=== PATIENT | male | born 1960 | race African-American/Black ===

== ENCOUNTER 2017-04-21 23:10 | Inpatient (IN) | payer OTHER ==
--- NOTE | 2017-04-22 01:06 | HP ---
CIWA Score - CIWA Score Nausea/Vomitin Muscle Tremors: 4-Moderate,w/Arms Extend Anxiety: 4-Mod. Anxious/Guarded Agitation: 1-Slight > Activity Paroxysmal Sweats: 2 Orientation: 0-Oriented Tacttile Disturbances: 0-None Auditory Disturbances: 0-None Visual Disturbances: 0-None Headache: 3-Moderate CIWA-Ar Total Score: 16 Admission ROS BHS - HPI Chief Complaint: Alcohol withdrawal symptoms Allergies/Adverse Reactions: Allergies Allergy/AdvReac Type Severity Reaction Status Date / Time No Known Allergies Allergy Verified 04/22/17 02:03 History of Present Illness: 56 years old male with a long history of alcohol dependence is admitted to detox. Patient has been in previous detox and reports 14 months of sobriety. He has past medical history of HTN, Hypercholesterolemia, CHF, GOUT, Obstructive sleep apnea, Pneumonia and depression. He reports suicide attempt in 2008 and denies suicidal ideation at this time. Exam Limitations: Other (Obesity) - Ebola screening Have you traveled outside of the country in the last 21 days: No Have you had contact with anyone from an Ebola affected area: No Have you been sick,other than usual withdrawal symptoms: No Do you have a fever: No - Review of Systems Constitutional: Chills, Malaise, Night Sweats, Changes in sleep EENT: reports: Nose Congestion, Sinus Pressure Respiratory: reports: No Symptoms reported Cardiac: reports: No Symptoms Reported GI: reports: Diarrhea, Poor Fluid Intake, Abdominal cramping : reports: No Symptoms Reported Musculoskeletal: reports: Muscle Pain, Muscle Weakness Integumentary: reports: Flushing Neuro: reports: Headache, Tingling, Tremors Endocrine: reports: No Symptoms Reported Hematology: reports: No Symptoms Reported Psychiatric: reports: Orientated x3, Agitated, Anxious Other Systems: Reviewed and Negative Patient History - Patient Medical History Hx Anemia: No Hx Asthma: No Hx Chronic Obstructive Pulmonary Disease (COPD): No Hx Cancer: No Hx Cardiac Disorders: No Hx Congestive Heart Failure: Yes Hx Hypertension: Yes (B/P=174/98) Hx Hypercholesterolemia: Yes Hx Pacemaker: No HX Cerebrovascular Accident: No Hx Seizures: No Hx Diabetes: No Hx Gastrointestinal Disorders: No Hx Liver Disease: No Hx Genitourinary Disorders: No Hx Sexually Transmitted Disorders: No Hx Renal Disease (ESRD): No Hx Thyroid Disease: No Hx Human Immunodeficiency Virus (HIV): No (neg 3m ) Hx Hepatitis C: No Hx Depression: Yes Hx Suicide Attempt: Yes (4 yrs ago ) Hx Bipolar Disorder: Yes Hx Schizophrenia: No - Patient Surgical History Past Surgical History: Yes Hx Neurologic Surgery: No Hx Cataract Extraction: No Hx Cardiac Surgery: No Hx Lung Surgery: No Hx Abdominal Surgery: No Hx Appendectomy: Yes (1984 ) Hx Cholecystectomy: No Hx Genitourinary Surgery: No Hx Orthopedic Surgery: No Anesthesia Reaction: No - PPD History Previous Implant?: Yes Documented Results: Negative w/o proof Implanted On Prior [facility] Admission?: Yes Date: 01/27/15 PPD to be Administered?: Yes - Reproductive History Patient is a Female of Child Bearing Age (11 -55 yrs old): No (MALE) - Smoking Cessation Smoking history: Current every day smoker Have you smoked in the past 12 months: Yes Aproximately how many cigarettes per day: 10 Cigars Per Day: 0 Hx Chewing Tobacco Use: No Initiated information on smoking cessation: Yes 'Breaking Loose' booklet given: 04/22/17 - Substance & Tx. History Hx Alcohol Use: Yes Hx Substance Use: Yes Substance Use Type: Alcohol, Cocaine Hx Substance Use Treatment: Yes ([facility]) - Substances Abused Alcohol Route: Injection Frequency: Daily Amount used: BEER- 120 oz, LIQUOR- 1 Age of first use: 10 Date of Last Use: 04/21/17 Cocaine Route: Smoking Frequency: Daily Amount used: $100 Age of first use: 22 Date of Last Use: 04/20/17 Family Disease History - Family Disease History Family Disease History: Diabetes: Father (), Heart Disease: Father, CA: Mother (Lung Ca- ) Admission Physical Exam [facility] Physical General Appearance: Yes: Moderate Distress, Tremorous, Irritable, Anxious HEENTM: Yes: GRACE, Nasal Congestion, Other (stye eight eye) Respiratory: Yes: Lungs Clear, No Respiratory Distress Neck: Yes: Supple Breast: Yes: Breast Exam Deferred Cardiology: Yes: Regular Rhythm, Regular Rate, S1, S2 Abdominal: Yes: Protuberent Genitourinary: Yes: Within Normal Limits Back: Yes: Normal Inspection Musculoskeletal: Yes: Back pain, Muscle Pain, Muscle weakness Extremities: Yes: Tremors Neurological: Yes: Alert, Normal Mood/Affect, Normal Response Integumentary: Yes: Dry Lymphatic: Yes: Within Normal Limits - Diagnostic (1) Alcohol dependence with uncomplicated withdrawal Current Visit: Yes Status: Chronic (2) CHF (congestive heart failure) Current Visit: Yes Status: Chronic Qualifiers: Congestive heart failure type: unspecified congestive heart failure type Congestive heart failure chronicity: unspecified congestive heart failure chronicity (3) Cocaine dependence Current Visit: Yes Status: Chronic Qualifiers: Substance use status: in withdrawal Qualified Code(s): F14.23 - Cocaine dependence with withdrawal (4) Nicotine dependence Current Visit: Yes Status: Chronic Qualifiers: Nicotine product type: cigarettes Substance use status: uncomplicated Qualified Code(s): F17.210 - Nicotine dependence, cigarettes, uncomplicated (5) Obstructive sleep apnea Current Visit: Yes Status: Chronic (6) Pneumonia Current Visit: Yes Status: Chronic Qualifiers: Pneumonia type: due to unspecified organism Laterality: left Lung location: lower lobe of lung Qualified Code(s): J18.1 - Lobar pneumonia, unspecified organism (7) Morbid obesity Current Visit: Yes Status: Chronic (8) Pituitary adenoma Current Visit: Yes Status: Chronic (9) Stasis dermatitis of both legs Current Visit: Yes Status: Chronic Cleared for Admission S - Detox or Rehab [facility] Level of Care: Medically Managed Detox Regimen/Protocol: Librium [facility] Breath Alcohol Content Breath Alcohol Content: 0.080 Vital Signs - Vital Signs Vital Signs Refused: Yes Temperature: 98.9 F Temperature Source: Oral Pulse Rate: 68 Respiratory Rate: 18 Blood Pressure: 145/70 BP Location: Left Arm Blood Pressure Position: Sitting - Height Height: 5 ft 8 in - Weight Weight: 350 lb Weight Measurement Method: Standing Scale Body Mass Index (BMI): 53.1 - Bowel Function Bowel Movement: Yes Urine Drug Screen - Test Device Lot Number: [id number] Expiration Date: 12/14/18 - Control Is Test Valid: Yes - Results Drug Screen Negative: No Urine Drug Screen Results: GABRIELLE-Cocaine
[2017-04-22] MEDS ORDERED: guaiFENesin/D-METHORPHAN HB 10 ML UNIT-DOSE CUPS PO PRN (01:31)
[2017-04-22] MEDS ORDERED: P-EPHED 60MG/TRIPROLIDI 2.5MG TABLET PO PRN (01:31)
[2017-04-22] MEDS ORDERED: NICOTINE POLACRILEX 2 MG GUM BC PRN (01:31)
[2017-04-22] MEDS ORDERED: ACETAMINOPHEN 325 MG TABLET (FP) PO PRN (01:31)
[2017-04-22] MEDS ORDERED: chlordiazePOXIDE HCL 25 MG CAPSULE PO PRN (01:31)
[2017-04-22] MEDS ORDERED: chlordiazePOXIDE HCL 25 MG CAPSULE PO ONE (01:31)
[2017-04-22] MEDS ORDERED: MAGNESIUM CITRATE 300 ML BOTTLE PO PRN (01:31)
[2017-04-22] MEDS ORDERED: MENTHOL/PHENOL 1 EACH UD MM PRN (01:31)
[2017-04-22] MEDS ORDERED: MAGNESIUM HYDROX 2400MG/30ML ORAL SUSPENSION 30 ML CUP PO PRN (01:31)
[2017-04-22] MEDS ORDERED: MAG HYDROX/AL HYDROX/SIMETH 30 ML UNIT-DOSE CUP PO PRN (01:31)
[2017-04-22] MEDS ORDERED: LOPERAMIDE HCL 2 MG CAPSULE PO PRN (01:31)
[2017-04-22] MEDS ORDERED: ALBUTEROL SO4 2.5/IPRATROPIUM 0.5 INH SOL 3 ML VIAL.NEB. NEB PRN (01:34)
[2017-04-22 01:47] VITALS: BMI 53.1
[2017-04-22] MEDS: chlordiazePOXIDE HCL 25 MG CAPSULE PO SCH ×4 (05:20→22:26)
--- NOTE | 2017-04-22 09:07 | EKG ---
Test Reason : Blood Pressure : / mmHG Vent. Rate : 075 BPM Atrial Rate : 075 BPM P-R Int : 160 ms QRS Dur : 096 ms QT Int : 434 ms P-R-T Axes : 096 -02 038 degrees QTc Int : 484 ms NORMAL SINUS RHYTHM MINIMAL VOLTAGE CRITERIA FOR LVH, MAY BE NORMAL VARIANT PROLONGED QT ABNORMAL ECG WHEN COMPARED WITH ECG OF 27-JAN-2015 11:04, NO SIGNIFICANT CHANGE WAS FOUND Confirmed by Steve Lopez ([id number]) on 04/22/2017 9:07:10 AM Referred By: Confirmed By:Steve Lopez
[2017-04-22] MEDS: IBUPROFEN 400 MG TABLET (FP) PO PRN (09:41)
[2017-04-22] MEDS: amLODIPine BESYLATE 10 MG TABLET (FP) PO SCH (09:42)
[2017-04-22] MEDS: LISINOPRIL 10 MG TABLET (FP) PO SCH (09:42)
[2017-04-22] MEDS: PRENATAL VITAMINS W/ FOLIC ACID TABLET (FP) PO SCH (09:42)
[2017-04-22] MEDS: FUROSEMIDE 40 MG TABLET (FP) PO SCH (09:42)
[2017-04-22] MEDS: COLCHICINE 0.6 MG TABLET (FP) PO SCH ×2 (09:43→22:28)
[2017-04-22 10:16] LABS: HEMOGLOBIN 12.9 GM/dL (11.7-16.9); MCH 30.2 pg (25.7-33.7); MCHC 31.6 g/dl (32.0-35.9); MEAN CELL VOLUME 95.6 fl (80-96); MEAN PLT VOLUME 9.1 fl (7.5-11.1); PLATELET COUNT 273 K/MM3 (134-434); RBC 4.29 M/mm3 (4.00-5.60); WHITE BLOOD COUNT 8.1 K/mm3 (4.0-10.0)
[2017-04-22] MEDS: NICOTINE 14 MG/24 HOURS TOPICAL PATCH TD SCH (10:17)
[2017-04-22 10:27] LABS: CHLORIDE 109 mmol/L (98-107); POTASSIUM 3.5 mmol/L (3.5-5.1); SODIUM 147 mmol/L (136-145)
--- NOTE | 2017-04-22 10:29 | PN ---
[facility] Progress Note Note: PT WAS ADMITTED EARLY THIS MORNING. PT SEEN WHILE IN BED. ALERT O X 3. C/O BACK PAIN. Laboratory Last Values WBC 8.1 K/mm3 (4.0-10.0) 04/22/17 07:00 RBC 4.29 M/mm3 (4.00-5.60) 04/22/17 07:00 Hgb 12.9 GM/dL (11.7-16.9) 04/22/17 07:00 Hct 41.0 % (35.4-49) 04/22/17 07:00 MCV 95.6 fl (80-96) 04/22/17 07:00 MCH 30.2 pg (25.7-33.7) 04/22/17 07:00 MCHC 31.6 g/dl (32.0-35.9) L 04/22/17 07:00 RDW 15.0 % (11.9-15.9) 04/22/17 07:00 Plt Count 273 K/MM3 (134-434) 04/22/17 07:00 MPV 9.1 fl (7.5-11.1) 04/22/17 07:00 OTHER LABS PENDING. CONTINUE DETOX. MOTRIN PRN
[2017-04-22 10:36] LABS: ALK PHOS 94 U/L (45-117); ANION GAP 7 (8-16); BILIRUBIN,TOTAL 0.1 mg/dL (0.2-1.0); BLOOD UREA NITROGEN 24 mg/dL (7-18); CALCIUM 8.3 mg/dL (8.5-10.1); CO2 31 mmol/L (21-32); CREATININE 0.9 mg/dL (0.7-1.3); GLUCOSE,RANDOM 102 mg/dL (74-106); SGOT/AST 13 U/L (15-37); SGPT/ALT 20 U/L (12-78); TOT PROT 6.5 g/dl (6.4-8.2)
[2017-04-22] MEDS: ALLOPURINOL 100 MG TABLET (FP) PO SCH (10:55)
[2017-04-22] MEDS: ARFORMOTEROL TARTRATE 15 MCG/2 ML VIAL NEB SCH ×2 (10:55→22:22)
--- NOTE | 2017-04-22 14:01 | CONSULT ---
[facility] Psychiatric Consult - Data Date of interview: 04/22/17 Admission source: [facility] Identifying data: Readmission to [facility] for this 56 y/o Aa male seeking detox treatment on for alcohol and cocaine (crack) dependence.Patient is single without children,domiciled,unemployed,disabled (morbid obesity) and supported on SSI benefits. Substance Abuse History: Confirmed by mary in this interview.Details in current [facility] report .Smoking history: Current every day smoker. Have you smoked in the past 12 months: Yes. Aproximately how many cigarettes per day: 10. Cigars Per Day: 0. Hx Chewing Tobacco Use: No. Initiated information on smoking cessation: Yes. 'Breaking Loose' booklet given: 04/22/17. - Substance & Tx. History. Hx Alcohol Use: Yes. Hx Substance Use: Yes. Substance Use Type : Alcohol, Cocaine. Hx Substance Use Treatment: Yes ([facility]). - Substances Abused. Alcohol. Route: Injection. Frequency: Daily. Amount used: BEER- 120 oz, LIQUOR- 1. Age of first use: 10. Date of Last Use: 04/21/17. Cocaine. Route: Smoking. Frequency: Daily. Amount used: $100. Age of first use: 22. Date of Last Use: 04/20/17 Medical History: Morbid obesity,sleep apnea,hypertension,chronic back pain, hypercholesterolemia,pituitary adenoma,stasis dermatitis (lower extremities), congestive heart failure,gout and a history of appendectomy (1984). Psychiatric History: Patient reports a history of two psychiatric hospitalizations ([facility] + [facility] ) that occurred approximately 18-20 years ago.Diagnosed with Bipolar Disorder.Mr Graham indicates that he has no recollection of medications prescribed at the time.Has been off psychotropic medications for several years.He has kept seeing a therapist " for a while " at the [facility] in [facility].Stopped in 2017.Patient denies history of suicide attempts. Physical/Sexual Abuse/Trauma History: Patient denies. Additional Comment: Urine Drug Screen Results: GABRIELLE-Cocaine.Noted. Mental Status Exam - Mental Status Exam Alert and Oriented to: Time, Place, Person Cognitive Function: Good Patient Appearance: Well Groomed (morbidly obese) Mood: Nervous, Withdrawn Affect: Mood Congruent Patient Behavior: Fatigued, Appropriate, Cooperative Speech Pattern: Clear Voice Loudness: Normal Thought Process: Intact, Goal Oriented Thought Disorder: Not Present Hallucinations: Denies Suicidal Ideation: Denies Homicidal Ideation: Denies Insight/Judgement: Poor Sleep: Well Appetite: Good Muscle strength/Tone: Normal Gait/Station: Other (slow due to excess of weight) Psychiatric Findings - Problem List ([place] 1, 2,3) (1) Alcohol dependence with uncomplicated withdrawal Current Visit: Yes Status: Chronic (2) Cocaine dependence Current Visit: Yes Status: Chronic Qualifiers: Substance use status: in withdrawal Qualified Code(s): F14.23 - Cocaine dependence with withdrawal (3) Nicotine dependence Current Visit: Yes Status: Chronic Qualifiers: Nicotine product type: cigarettes Substance use status: uncomplicated Qualified Code(s): F17.210 - Nicotine dependence, cigarettes, uncomplicated - Initial Treatment Plan Initial Treatment Plan: Psychoeducation and support.Detoxification in progress.Patient is encouraged to attend daily therapy groups and community meetings.Falls precautions.Observation.
[2017-04-22 18:14] LABS: URINE APPEARANCE CLEAR; URINE BILIRUBIN NEGATIVE (NEGATIVE); URINE BLOOD NEGATIVE (NEGATIVE); URINE COLOR COLORLESS; URINE GLUCOSE (UA) NEGATIVE (NEGATIVE); URINE KETONE NEGATIVE (NEGATIVE); URINE LEUK ESTERASE NEGATIVE (NEGATIVE); URINE NITRITE NEGATIVE (NEGATIVE); URINE PROTEIN NEGATIVE (NEGATIVE); URINE UROBILINOGEN NEGATIVE mg/dL (0.2-1.0)
[2017-04-22] MEDS: ATORVASTATIN CA 20 MG TABLET (FP) PO SCH (22:26)
[2017-04-22] MEDS: THIAMINE HCL 100 MG TABLET (FP) PO SCH (22:26)
[2017-04-23] MEDS: chlordiazePOXIDE HCL 25 MG CAPSULE PO SCH ×4 (05:38→22:44)
[2017-04-23] MEDS: IBUPROFEN 400 MG TABLET (FP) PO PRN (05:41)
[2017-04-23] MEDS: LISINOPRIL 10 MG TABLET (FP) PO SCH (10:18)
[2017-04-23] MEDS: COLCHICINE 0.6 MG TABLET (FP) PO SCH ×2 (10:18→22:43)
[2017-04-23] MEDS: NICOTINE 14 MG/24 HOURS TOPICAL PATCH TD SCH (10:18)
[2017-04-23] MEDS: FUROSEMIDE 40 MG TABLET (FP) PO SCH (10:18)
[2017-04-23] MEDS: amLODIPine BESYLATE 10 MG TABLET (FP) PO SCH (10:18)
[2017-04-23] MEDS: PRENATAL VITAMINS W/ FOLIC ACID TABLET (FP) PO SCH (10:18)
[2017-04-23] MEDS: ARFORMOTEROL TARTRATE 15 MCG/2 ML VIAL NEB SCH ×2 (10:18→22:43)
[2017-04-23] MEDS: ALLOPURINOL 100 MG TABLET (FP) PO SCH (10:20)
--- NOTE | 2017-04-23 11:00 | PN ---
[facility] CIWA - CIWA Score Nausea/Vomitin-No Nausea/No Vomiting Muscle Tremors: 4-Moderate,w/Arms Extend Anxiety: 4-Mod. Anxious/Guarded Agitation: 4-Moderately Restless Paroxysmal Sweats: 1-Minimal Palms Moist Orientation: 0-Oriented Tacttile Disturbances: 3-Moderate Itch/Numb/Burn Auditory Disturbances: 0-None Visual Disturbances: 0-None Headache: 0-None Present CIWA-Ar Total Score: 16 S Progress Note (SOAP) Subjective: ANXIETY, SWEATS, CHRONIC LOWER BACK PAIN. SAW PT WHILE LAYING IN BED. Objective: 04/23/17 10:59 Vital Signs Temperature 97.2 F L 04/23/17 09:04 Pulse Rate 68 04/23/17 09:04 Respiratory Rate 18 04/23/17 09:04 Blood Pressure 114/69 04/23/17 09:04 O2 Sat by Pulse Oximetry (%) Laboratory Last Values WBC 8.1 K/mm3 (4.0-10.0) 04/22/17 07:00 RBC 4.29 M/mm3 (4.00-5.60) 04/22/17 07:00 Hgb 12.9 GM/dL (11.7-16.9) 04/22/17 07:00 Hct 41.0 % (35.4-49) 04/22/17 07:00 MCV 95.6 fl (80-96) 04/22/17 07:00 MCH 30.2 pg (25.7-33.7) 04/22/17 07:00 MCHC 31.6 g/dl (32.0-35.9) L 04/22/17 07:00 RDW 15.0 % (11.9-15.9) 04/22/17 07:00 Plt Count 273 K/MM3 (134-434) 04/22/17 07:00 MPV 9.1 fl (7.5-11.1) 04/22/17 07:00 Sodium 147 mmol/L (136-145) H 04/22/17 07:00 Potassium 3.5 mmol/L (3.5-5.1) 04/22/17 07:00 Chloride 109 mmol/L (98-107) H 04/22/17 07:00 Carbon Dioxide 31 mmol/L (21-32) D 04/22/17 07:00 Anion Gap 7 (8-16) L 04/22/17 07:00 BUN 24 mg/dL (7-18) H 04/22/17 07:00 Creatinine 0.9 mg/dL (0.7-1.3) 04/22/17 07:00 Creat Clearance w eGFR > 60 (>60) 04/22/17 07:00 Random Glucose 102 mg/dL (74-106) 04/22/17 07:00 Calcium 8.3 mg/dL (8.5-10.1) L 04/22/17 07:00 Total Bilirubin 0.1 mg/dL (0.2-1.0) L D 04/22/17 07:00 AST 13 U/L (15-37) L D 04/22/17 07:00 ALT 20 U/L (12-78) D 04/22/17 07:00 Alkaline Phosphatase 94 U/L (45-117) 04/22/17 07:00 Total Protein 6.5 g/dl (6.4-8.2) 04/22/17 07:00 Albumin 3.0 g/dl (3.4-5.0) L 04/22/17 07:00 Urine Color Colorless 04/22/17 16:00 Urine Appearance Clear 04/22/17 16:00 Urine pH 5.0 (5.0-8.0) 04/22/17 16:00 Ur Specific [place] 1.006 (1.001-1.035) 04/22/17 16:00 Urine Protein Negative (NEGATIVE) 04/22/17 16:00 Urine Glucose (UA) Negative (NEGATIVE) 04/22/17 16:00 Urine Ketones Negative (NEGATIVE) 04/22/17 16:00 Urine Blood Negative (NEGATIVE) 04/22/17 16:00 Urine Nitrite Negative (NEGATIVE) 04/22/17 16:00 Urine Bilirubin Negative (NEGATIVE) 04/22/17 16:00 Urine Urobilinogen Negative mg/dL (0.2-1.0) 04/22/17 16:00 Ur Leukocyte Esterase Negative (NEGATIVE) 04/22/17 16:00 RPR Titer Nonreactive (NONREACTIVE) 04/22/17 07:00 Assessment: 04/23/17 10:59 WITHDRAWAL SX Plan: CONTINUE DETOX MOTRIN PRN DIRECTED FOR PAIN FALL PRECAUTIONS DISCUSSED.
[2017-04-23] MEDS: ATORVASTATIN CA 20 MG TABLET (FP) PO SCH (22:44)
[2017-04-23] MEDS: THIAMINE HCL 100 MG TABLET (FP) PO SCH (22:44)
[2017-04-24] MEDS: IBUPROFEN 400 MG TABLET (FP) PO PRN (01:33)
[2017-04-24] MEDS: chlordiazePOXIDE 5 MG CAPSULE PO SCH ×4 (06:00→23:03)
[2017-04-24] MEDS: FUROSEMIDE 40 MG TABLET (FP) PO SCH (10:08)
[2017-04-24] MEDS: LISINOPRIL 10 MG TABLET (FP) PO SCH (10:08)
[2017-04-24] MEDS: amLODIPine BESYLATE 10 MG TABLET (FP) PO SCH (10:08)
[2017-04-24] MEDS: PRENATAL VITAMINS W/ FOLIC ACID TABLET (FP) PO SCH (10:08)
[2017-04-24] MEDS: NICOTINE 14 MG/24 HOURS TOPICAL PATCH TD SCH (10:08)
[2017-04-24] MEDS: ALLOPURINOL 100 MG TABLET (FP) PO SCH (10:09)
[2017-04-24] MEDS: COLCHICINE 0.6 MG TABLET (FP) PO SCH ×3 (10:09→23:07)
--- NOTE | 2017-04-24 11:07 | PN ---
S CIWA - CIWA Score Nausea/Vomitin-No Nausea/No Vomiting Muscle Tremors: 3 Anxiety: 4-Mod. Anxious/Guarded Agitation: 3 Paroxysmal Sweats: No Perspiration Orientation: 0-Oriented Tacttile Disturbances: 3-Moderate Itch/Numb/Burn Auditory Disturbances: 0-None Visual Disturbances: 0-None Headache: 0-None Present CIWA-Ar Total Score: 13 BHS Progress Note (SOAP) Subjective: PT SEEN DURING ROUNDS LAYING IN BED. SLEEPY BUT AROUSABLE. VERBALIZED "NOT FEELING OK BECAUSE OF BACK PAIN AND I CAN'T MOVE". Objective: 04/24/17 10:59 Vital Signs Temperature 97.2 F L 04/24/17 10:10 Pulse Rate 65 04/24/17 10:10 Respiratory Rate 20 04/24/17 10:10 Blood Pressure 146/86 04/24/17 10:10 O2 Sat by Pulse Oximetry (%) Laboratory Last Values WBC 8.1 K/mm3 (4.0-10.0) 04/22/17 07:00 RBC 4.29 M/mm3 (4.00-5.60) 04/22/17 07:00 Hgb 12.9 GM/dL (11.7-16.9) 04/22/17 07:00 Hct 41.0 % (35.4-49) 04/22/17 07:00 MCV 95.6 fl (80-96) 04/22/17 07:00 MCH 30.2 pg (25.7-33.7) 04/22/17 07:00 MCHC 31.6 g/dl (32.0-35.9) L 04/22/17 07:00 RDW 15.0 % (11.9-15.9) 04/22/17 07:00 Plt Count 273 K/MM3 (134-434) 04/22/17 07:00 MPV 9.1 fl (7.5-11.1) 04/22/17 07:00 Sodium 147 mmol/L (136-145) H 04/22/17 07:00 Potassium 3.5 mmol/L (3.5-5.1) 04/22/17 07:00 Chloride 109 mmol/L (98-107) H 04/22/17 07:00 Carbon Dioxide 31 mmol/L (21-32) D 04/22/17 07:00 Anion Gap 7 (8-16) L 04/22/17 07:00 BUN 24 mg/dL (7-18) H 04/22/17 07:00 Creatinine 0.9 mg/dL (0.7-1.3) 04/22/17 07:00 Creat Clearance w eGFR > 60 (>60) 04/22/17 07:00 Random Glucose 102 mg/dL (74-106) 04/22/17 07:00 Calcium 8.3 mg/dL (8.5-10.1) L 04/22/17 07:00 Total Bilirubin 0.1 mg/dL (0.2-1.0) L D 04/22/17 07:00 AST 13 U/L (15-37) L D 04/22/17 07:00 ALT 20 U/L (12-78) D 04/22/17 07:00 Alkaline Phosphatase 94 U/L (45-117) 04/22/17 07:00 Total Protein 6.5 g/dl (6.4-8.2) 04/22/17 07:00 Albumin 3.0 g/dl (3.4-5.0) L 04/22/17 07:00 Urine Color Colorless 04/22/17 16:00 Urine Appearance Clear 04/22/17 16:00 Urine pH 5.0 (5.0-8.0) 04/22/17 16:00 Ur Specific [place] 1.006 (1.001-1.035) 04/22/17 16:00 Urine Protein Negative (NEGATIVE) 04/22/17 16:00 Urine Glucose (UA) Negative (NEGATIVE) 04/22/17 16:00 Urine Ketones Negative (NEGATIVE) 04/22/17 16:00 Urine Blood Negative (NEGATIVE) 04/22/17 16:00 Urine Nitrite Negative (NEGATIVE) 04/22/17 16:00 Urine Bilirubin Negative (NEGATIVE) 04/22/17 16:00 Urine Urobilinogen Negative mg/dL (0.2-1.0) 04/22/17 16:00 Ur Leukocyte Esterase Negative (NEGATIVE) 04/22/17 16:00 RPR Titer Nonreactive (NONREACTIVE) 04/22/17 07:00 Assessment: 04/24/17 11:00 WITHDRAWAL SX CHRONIC BACK PAIN Plan: CONTINUE DETOX ASSIST PT NEEDED
[2017-04-24] MEDS: ARFORMOTEROL TARTRATE 15 MCG/2 ML VIAL NEB SCH (22:59)
[2017-04-24] MEDS: ATORVASTATIN CA 20 MG TABLET (FP) PO SCH ×2 (23:03→23:07)
[2017-04-24] MEDS: THIAMINE HCL 100 MG TABLET (FP) PO SCH ×2 (23:03→23:07)
[2017-04-25] MEDS: IBUPROFEN 400 MG TABLET (FP) PO PRN (04:51)
[2017-04-25] MEDS: chlordiazePOXIDE HCL 10 MG CAPSULE PO SCH ×2 (04:52→10:32)
[2017-04-25 10:24] VITALS: BP 111/57; PULSE 96; TEMP 98.6
[2017-04-25] MEDS: LISINOPRIL 10 MG TABLET (FP) PO SCH (10:31)
[2017-04-25] MEDS: COLCHICINE 0.6 MG TABLET (FP) PO SCH (10:31)
[2017-04-25] MEDS: amLODIPine BESYLATE 10 MG TABLET (FP) PO SCH (10:31)
[2017-04-25] MEDS: ALLOPURINOL 100 MG TABLET (FP) PO SCH (10:31)
[2017-04-25] MEDS: PRENATAL VITAMINS W/ FOLIC ACID TABLET (FP) PO SCH (10:31)
[2017-04-25] MEDS: FUROSEMIDE 40 MG TABLET (FP) PO SCH (10:32)
[2017-04-25] MEDS: ARFORMOTEROL TARTRATE 15 MCG/2 ML VIAL NEB SCH (10:33)
[2017-04-25] MEDS: NICOTINE 14 MG/24 HOURS TOPICAL PATCH TD SCH (11:03)
--- NOTE | 2017-04-25 11:31 | DS ---
[facility] Detox Discharge Summary Admission Date: 04/22/17 Discharge Date: 04/25/17 - History Present History: Alcohol Dependence, Cocaine Dependence Additional Comments: LAST DAY OF LIBRIUM TAPER. PT INTERESTED TO GO TO REHAB. REFERRED TO REHAB TODAY PER HIS COUNSELOR DAYNA MAGALLANES. Pertinent Past History: SEE DX BELOW - Physical Exam Results Vital Signs: Vital Signs Temperature 98.6 F 04/25/17 10:22 Pulse Rate 96 H 04/25/17 10:22 Respiratory Rate 20 04/25/17 10:22 Blood Pressure 111/57 04/25/17 10:22 O2 Sat by Pulse Oximetry (%) Pertinent Admission Physical Exam Findings: WITHDRAWAL SX Laboratory Last Values WBC 8.1 K/mm3 (4.0-10.0) 04/22/17 07:00 RBC 4.29 M/mm3 (4.00-5.60) 04/22/17 07:00 Hgb 12.9 GM/dL (11.7-16.9) 04/22/17 07:00 Hct 41.0 % (35.4-49) 04/22/17 07:00 MCV 95.6 fl (80-96) 04/22/17 07:00 MCH 30.2 pg (25.7-33.7) 04/22/17 07:00 MCHC 31.6 g/dl (32.0-35.9) L 04/22/17 07:00 RDW 15.0 % (11.9-15.9) 04/22/17 07:00 Plt Count 273 K/MM3 (134-434) 04/22/17 07:00 MPV 9.1 fl (7.5-11.1) 04/22/17 07:00 Sodium 147 mmol/L (136-145) H 04/22/17 07:00 Potassium 3.5 mmol/L (3.5-5.1) 04/22/17 07:00 Chloride 109 mmol/L (98-107) H 04/22/17 07:00 Carbon Dioxide 31 mmol/L (21-32) D 04/22/17 07:00 Anion Gap 7 (8-16) L 04/22/17 07:00 BUN 24 mg/dL (7-18) H 04/22/17 07:00 Creatinine 0.9 mg/dL (0.7-1.3) 04/22/17 07:00 Creat Clearance w eGFR > 60 (>60) 04/22/17 07:00 Random Glucose 102 mg/dL (74-106) 04/22/17 07:00 Calcium 8.3 mg/dL (8.5-10.1) L 04/22/17 07:00 Total Bilirubin 0.1 mg/dL (0.2-1.0) L D 04/22/17 07:00 AST 13 U/L (15-37) L D 04/22/17 07:00 ALT 20 U/L (12-78) D 04/22/17 07:00 Alkaline Phosphatase 94 U/L (45-117) 04/22/17 07:00 Total Protein 6.5 g/dl (6.4-8.2) 04/22/17 07:00 Albumin 3.0 g/dl (3.4-5.0) L 04/22/17 07:00 Urine Color Colorless 04/22/17 16:00 Urine Appearance Clear 04/22/17 16:00 Urine pH 5.0 (5.0-8.0) 04/22/17 16:00 Ur Specific [place] 1.006 (1.001-1.035) 04/22/17 16:00 Urine Protein Negative (NEGATIVE) 04/22/17 16:00 Urine Glucose (UA) Negative (NEGATIVE) 04/22/17 16:00 Urine Ketones Negative (NEGATIVE) 04/22/17 16:00 Urine Blood Negative (NEGATIVE) 04/22/17 16:00 Urine Nitrite Negative (NEGATIVE) 04/22/17 16:00 Urine Bilirubin Negative (NEGATIVE) 04/22/17 16:00 Urine Urobilinogen Negative mg/dL (0.2-1.0) 04/22/17 16:00 Ur Leukocyte Esterase Negative (NEGATIVE) 04/22/17 16:00 RPR Titer Nonreactive (NONREACTIVE) 04/22/17 07:00 - Treatment Hospital Course: Detox Protocol Followed, Detoxed Safely, Responded well, Discharged Condition Good, Rehab Referral Accepted Patient has Accepted a Rehab Referral to: [facility] - Medication Discharge Medications: Ambulatory Orders Atorvastatin Ca [Lipitor] 20 mg PO HS 01/27/15 Furosemide [Lasix -] 40 mg PO DAILY 01/27/15 Amlodipine Besylate [Norvasc -] 10 mg PO DAILY #30 tablet 02/06/15 Lisinopril [Prinivil] 30 mg PO DAILY #30 tablet 02/06/15 Allopurinol [Zyloprim -] 100 mg PO DAILY 04/22/17 Colchicine 0.6 mg PO BID 04/22/17 - Diagnosis (1) Alcohol dependence with uncomplicated withdrawal Current Visit: Yes Status: Acute (2) CHF (congestive heart failure) Current Visit: Yes Status: Chronic Qualifiers: Congestive heart failure type: unspecified congestive heart failure type Congestive heart failure chronicity: unspecified congestive heart failure chronicity (3) Cocaine dependence Current Visit: Yes Status: Acute Qualifiers: Substance use status: uncomplicated Qualified Code(s): F14.20 - Cocaine dependence, uncomplicated (4) Morbid obesity Current Visit: Yes Status: Chronic (5) Nicotine dependence Current Visit: Yes Status: Acute Qualifiers: Nicotine product type: cigarettes Substance use status: in withdrawal Qualified Code(s): F17.213 - Nicotine dependence, cigarettes, with withdrawal (6) Gout Current Visit: Yes Status: Chronic (7) Sleep apnea Current Visit: Yes Status: Chronic Qualifiers: Sleep apnea type: unspecified type Qualified Code(s): G47.30 - Sleep apnea , unspecified (8) Back pain Current Visit: Yes Status: Chronic Qualifiers: Back pain location: low back pain Chronicity: chronic - AMA Did Patient Leave Against Medical Advice: No
== END 2017-04-25 14:12 | disposition other institution (70) | DRG 774 ==
LOC: YASAS 23:10 → Y3N 04-22 01:35
PROVIDERS: ADMIT Internal Medicine; ATTEND Internal Medicine
PROC: HZ2ZZZZ Detoxification Services for Substance Abuse Treatment (ICD-10-PCS; principal; 2017-04-22)
DX: F10.230 Alcohol dependence with withdrawal, uncomplicated (principal); F14.20 Cocaine dependence, uncomplicated; F17.213 Nicotine dependence, cigarettes, with withdrawal; I10 Essential (primary) hypertension; I50.9 Heart failure, unspecified; M54.5 Low back pain; G89.29 Other chronic pain; G47.33 Obstructive sleep apnea (adult) (pediatric); M10.9 Gout, unspecified; I87.2 Venous insufficiency (chronic) (peripheral); E78.00 Pure hypercholesterolemia, unspecified; J18.1 Lobar pneumonia, unspecified organism; E66.01 Morbid (severe) obesity due to excess calories; Z68.43 Body mass index [BMI] 50.0-59.9, adult; Z91.5 Personal history of self-harm
CPT/HCPCS: 36415; 80053; 81003; 85027; 86593; 93005; 93010; 94640

== ENCOUNTER 2017-04-25 14:43 | Inpatient (IN) | payer OTHER ==
[2017-04-25] MEDS ORDERED: MAG HYDROX/AL HYDROX/SIMETH 30 ML UNIT-DOSE CUP PO PRN (14:57)
[2017-04-25] MEDS ORDERED: hydrOXYzine PAMOATE 50 MG CAPSULE (FP) PO PRN (14:57)
[2017-04-25] MEDS ORDERED: LOPERAMIDE HCL 2 MG CAPSULE PO PRN (14:57)
[2017-04-25] MEDS ORDERED: MAGNESIUM HYDROX 2400MG/30ML ORAL SUSPENSION 30 ML CUP PO PRN (14:57)
[2017-04-25] MEDS ORDERED: MAGNESIUM CITRATE 300 ML BOTTLE PO PRN (14:57)
[2017-04-25] MEDS ORDERED: guaiFENesin/D-METHORPHAN HB 10 ML UNIT-DOSE CUPS PO PRN (14:57)
[2017-04-25] MEDS ORDERED: MENTHOL/PHENOL 1 EACH UD MM PRN (14:57)
[2017-04-25] MEDS ORDERED: P-EPHED 60MG/TRIPROLIDI 2.5MG TABLET PO PRN (14:57)
--- NOTE | 2017-04-25 14:57 | HP ---
[facility] Re[facility] Assess/Revision - Admission History Admitted to Rehab from: [facility] Date of Admission to Rehab: 04/25/17 - Vital signs Vital Signs: Vital Signs Period Temp Pulse Resp BP Sys/Zaidi Pulse Ox Last 24 Hr 97.8 F 69 18 141/85 - Findings Detox History & Physical reviewed: Yes Concur with findings: Yes Comments/Additional Findings: FOR REHAB PROTOCOL Inpatient Rehab Admission - Initial Determination Are CD services needed?: Yes Free of communicable disease: Yes Not in need of hospitalization: Yes - Rehab Admission Criteria Previous failed treatment: Yes Poor recovery environment: Yes Comorbidities: Yes Lacks judgement: No Patient is meeting Inpatient Rehab admission criteria:: Yes
[2017-04-25] MEDS ORDERED: ALBUTEROL SO4 2.5/IPRATROPIUM 0.5 INH SOL 3 ML VIAL.NEB. NEB SCH (15:00)
[2017-04-25] MEDS ORDERED: ALBUTEROL SO4 2.5/IPRATROPIUM 0.5 INH SOL 3 ML VIAL.NEB. NEB PRN (15:27)
[2017-04-25] MEDS: THIAMINE HCL 100 MG TABLET (FP) PO SCH (21:41)
[2017-04-25] MEDS: ATORVASTATIN CA 20 MG TABLET (FP) PO SCH ×2 (21:41→21:42)
[2017-04-26] MEDS: PRENATAL VITAMINS W/ FOLIC ACID TABLET (FP) PO SCH (10:37)
[2017-04-26] MEDS: FUROSEMIDE 40 MG TABLET (FP) PO SCH (10:38)
[2017-04-26] MEDS: amLODIPine BESYLATE 10 MG TABLET (FP) PO SCH ×2 (10:38→10:46)
[2017-04-26] MEDS: ALLOPURINOL 100 MG TABLET (FP) PO SCH (10:38)
[2017-04-26] MEDS: LISINOPRIL 10 MG TABLET (FP) PO SCH ×2 (10:38→10:47)
[2017-04-26] MEDS: IBUPROFEN 400 MG TABLET (FP) PO PRN (10:40)
[2017-04-26] MEDS: ATORVASTATIN CA 20 MG TABLET (FP) PO SCH (21:38)
[2017-04-26] MEDS: THIAMINE HCL 100 MG TABLET (FP) PO SCH (21:38)
[2017-04-27] MEDS: ACETAMINOPHEN 325 MG TABLET (FP) PO PRN (04:51)
[2017-04-27] MEDS: PRENATAL VITAMINS W/ FOLIC ACID TABLET (FP) PO SCH (10:32)
[2017-04-27] MEDS: ALLOPURINOL 100 MG TABLET (FP) PO SCH (10:33)
[2017-04-27] MEDS: FUROSEMIDE 40 MG TABLET (FP) PO SCH (10:34)
[2017-04-27] MEDS: amLODIPine BESYLATE 10 MG TABLET (FP) PO SCH (11:00)
[2017-04-27] MEDS: LISINOPRIL 10 MG TABLET (FP) PO SCH (11:00)
[2017-04-27] MEDS: THIAMINE HCL 100 MG TABLET (FP) PO SCH (21:58)
[2017-04-27] MEDS: ATORVASTATIN CA 20 MG TABLET (FP) PO SCH (21:58)
[2017-04-28] MEDS: ALLOPURINOL 100 MG TABLET (FP) PO SCH (10:01)
[2017-04-28] MEDS: amLODIPine BESYLATE 10 MG TABLET (FP) PO SCH (10:01)
[2017-04-28] MEDS: PRENATAL VITAMINS W/ FOLIC ACID TABLET (FP) PO SCH (10:01)
[2017-04-28] MEDS: FUROSEMIDE 40 MG TABLET (FP) PO SCH (10:02)
[2017-04-28] MEDS: LISINOPRIL 10 MG TABLET (FP) PO SCH (10:02)
--- NOTE | 2017-04-28 14:03 | HP ---
Psychiatrist Admission - Data Date of interview: 04/28/17 Admission source: 3N Identifying data: This is the first 5N inpatient rehabilitation admission for this 56 year old AA male who is single without children, he is domiciled and unemployed, disabled and supported on SSI benefits. Medical History: Morbid obesity, sleep apnea, hypertension, chronic back pain, hypercholesterolemia, pituitary adenoma, stasis dermatitis (lower extremities), congestive heart failure, gout, smokes cigarettes 1/2 PPD. Psychiatric History: Patient reports first psychiatric contact as a child, "had a behavioral issues", no medications, reports was in the treatment in the past( about 18 years ago) while in outpatient setting at [facility],treated with Depakote, Trazodone and Celexa, has been off psychotropic medications for several years does not feel he needs any treatment. Physical/Sexual Abuse/Trauma History: Patient denies. Vital Signs: Vital Signs - 24 hr 04/28/17 04/28/17 04/28/17 00:30 03:30 06:59 Temperature 98.0 F Pulse Rate 55 L Respiratory 18 20 20 Rate Blood Pressure 148/78 Allergies/Adverse Reactions: Allergies Allergy/AdvReac Type Severity Reaction Status Date / Time No Known Allergies Allergy Verified 04/25/17 14:46 Date of last physical exam: 04/25/17 Concur with the findings of this exam: Yes - Substance Abuse/Tx History Hx Alcohol Use: Yes (beer, liquor) Hx Substance Use: Yes Substance Use Type: Alcohol (120 oz/1pint), Cocaine ($100 daily) Hx Substance Use Treatment: Yes Mental Status Exam - Mental Status Exam Alert and Oriented to: Time, Place, Person Cognitive Function: Fair Patient Appearance: Well Groomed (morbidly abese) Mood: Hopeful Affect: Appropriate, Mood Congruent Patient Behavior: Appropriate, Cooperative Speech Pattern: Clear, Appropriate Voice Loudness: Normal Thought Process: Intact, Goal Oriented Thought Disorder: Not Present Hallucinations: Denies Suicidal Ideation: Denies Homicidal Ideation: Denies Insight/Judgement: Fair Appetite: Good Muscle strength/Tone: Normal Gait/Station: Normal Psychiatric Findings - Problem List ([place] 1, 2,3) (1) Alcohol dependence Current Visit: Yes Status: Acute (2) History of bipolar disorder Current Visit: Yes Status: Acute (3) Cocaine dependence Current Visit: No Status: Acute Qualifiers: Substance use status: uncomplicated Qualified Code(s): F14.20 - Cocaine dependence, uncomplicated - Initial Treatment Plan Initial Treatment Plan: Psychoeducation and support provided. Patient was encouraged to attend daily therapy groups and community meetings.
[2017-04-28] MEDS: ATORVASTATIN CA 20 MG TABLET (FP) PO SCH (21:39)
[2017-04-28] MEDS: THIAMINE HCL 100 MG TABLET (FP) PO SCH (21:39)
[2017-04-29] MEDS: IBUPROFEN 400 MG TABLET (FP) PO PRN ×2 (06:31→14:08)
[2017-04-29] MEDS: LISINOPRIL 10 MG TABLET (FP) PO SCH (10:44)
[2017-04-29] MEDS: amLODIPine BESYLATE 10 MG TABLET (FP) PO SCH (10:44)
[2017-04-29] MEDS: ALLOPURINOL 100 MG TABLET (FP) PO SCH (10:44)
[2017-04-29] MEDS: PRENATAL VITAMINS W/ FOLIC ACID TABLET (FP) PO SCH (10:44)
[2017-04-29] MEDS: FUROSEMIDE 40 MG TABLET (FP) PO SCH (10:44)
[2017-04-29] MEDS: THIAMINE HCL 100 MG TABLET (FP) PO SCH (21:43)
[2017-04-29] MEDS: ATORVASTATIN CA 20 MG TABLET (FP) PO SCH (21:43)
[2017-04-30] MEDS: IBUPROFEN 400 MG TABLET (FP) PO PRN (06:10)
[2017-04-30] MEDS: PRENATAL VITAMINS W/ FOLIC ACID TABLET (FP) PO SCH (10:57)
[2017-04-30] MEDS: amLODIPine BESYLATE 10 MG TABLET (FP) PO SCH (10:57)
[2017-04-30] MEDS: LISINOPRIL 10 MG TABLET (FP) PO SCH (10:57)
[2017-04-30] MEDS: ALLOPURINOL 100 MG TABLET (FP) PO SCH (10:58)
[2017-04-30] MEDS: FUROSEMIDE 40 MG TABLET (FP) PO SCH (10:58)
--- NOTE | 2017-04-30 11:21 | PN ---
S Progress Note (SOAP) Subjective: c/o arthritic jopint pain worse in morning, has recently lost weight but still obese Objective: 04/30/17 11:19 Vital Signs - 24 hr 04/30/17 04/30/17 04/30/17 00:30 03:30 07:03 Temperature 97.6 F Pulse Rate 62 Respiratory 18 18 20 Rate Blood Pressure 151/84 labs reveiwed, mild dehyudation but kidneys functioning Assessment: 04/30/17 11:19 obesity, arthritis - start naproxen, neurotnin, protonix
[2017-04-30] MEDS: NAPROXEN 500 MG TABLET (FP) PO SCH ×2 (13:17→21:46)
[2017-04-30] MEDS: PANTOPRAZOLE 40 MG TABLET (FP) PO SCH (13:17)
[2017-04-30] MEDS: GABAPENTIN 100 MG CAPSULE (FP) PO SCH ×2 (13:17→21:46)
[2017-04-30] MEDS: ATORVASTATIN CA 20 MG TABLET (FP) PO SCH (21:46)
[2017-04-30] MEDS: THIAMINE HCL 100 MG TABLET (FP) PO SCH (21:46)
[2017-05-01] MEDS: GABAPENTIN 100 MG CAPSULE (FP) PO SCH ×3 (06:47→22:04)
[2017-05-01] MEDS: amLODIPine BESYLATE 10 MG TABLET (FP) PO SCH (10:52)
[2017-05-01] MEDS: NAPROXEN 500 MG TABLET (FP) PO SCH ×2 (10:52→22:04)
[2017-05-01] MEDS: PANTOPRAZOLE 40 MG TABLET (FP) PO SCH (10:52)
[2017-05-01] MEDS: PRENATAL VITAMINS W/ FOLIC ACID TABLET (FP) PO SCH (10:52)
[2017-05-01] MEDS: ALLOPURINOL 100 MG TABLET (FP) PO SCH (10:53)
[2017-05-01] MEDS: FUROSEMIDE 40 MG TABLET (FP) PO SCH (10:53)
[2017-05-01] MEDS: LISINOPRIL 10 MG TABLET (FP) PO SCH (10:53)
[2017-05-01] MEDS: THIAMINE HCL 100 MG TABLET (FP) PO SCH (22:03)
[2017-05-01] MEDS: ATORVASTATIN CA 20 MG TABLET (FP) PO SCH (22:04)
[2017-05-01] MEDS: COLCHICINE 0.6 MG TABLET (FP) PO SCH (22:04)
[2017-05-02] MEDS: ACETAMINOPHEN 325 MG TABLET (FP) PO PRN (03:17)
[2017-05-02] MEDS: GABAPENTIN 100 MG CAPSULE (FP) PO SCH (06:04)
[2017-05-02 07:04] VITALS: TEMP 98.2
[2017-05-02] MEDS: COLCHICINE 0.6 MG TABLET (FP) PO SCH (10:29)
[2017-05-02] MEDS: NAPROXEN 500 MG TABLET (FP) PO SCH (10:29)
[2017-05-02] MEDS: PRENATAL VITAMINS W/ FOLIC ACID TABLET (FP) PO SCH (10:29)
[2017-05-02] MEDS: ALLOPURINOL 100 MG TABLET (FP) PO SCH (10:29)
[2017-05-02] MEDS: FUROSEMIDE 40 MG TABLET (FP) PO SCH (10:29)
[2017-05-02] MEDS: LISINOPRIL 10 MG TABLET (FP) PO SCH (10:29)
[2017-05-02] MEDS: PANTOPRAZOLE 40 MG TABLET (FP) PO SCH (10:29)
--- NOTE | 2017-05-02 10:29 | PN ---
Psychiatric Progress Note Vital Signs: Vital Signs Period Temp Pulse Resp BP Sys/Zaidi Pulse Ox Last 24 Hr 98.2 F 60-70 18-20 133-151/70-81 Date of Session: 05/02/17 Chief Complaint:: discharge visit HPI: Patient has addressed alcohol, cocaine dependence and history of bipolar disoder. Current Medications: Active Medications Generic Name Dose Route Start Last Admin Trade Name Freq PRN Reason Stop Dose Admin Acetaminophen 650 mg 04/25/17 14:57 05/02/17 03:17 Tylenol - PO 650 mg Q4H PRN Administration FEVER Al Hydroxide/Mg Hydroxide 30 ml 04/25/17 14:57 Mylanta Oral Suspension - PO Q6H PRN DYSPEPSIA Albuterol/Ipratropium 1 amp 04/25/17 15:27 Duoneb - NEB Q4H PRN SHORTNESS OF BREATH Allopurinol 100 mg 04/26/17 10:00 05/01/17 10:53 Zyloprim - PO 100 mg DAILY URIEL Administration Amlodipine Besylate 10 mg 04/26/17 10:00 05/01/17 10:52 Norvasc - PO 10 mg DAILY URIEL Administration Atorvastatin Calcium 20 mg 04/25/17 22:00 05/01/17 22:04 Lipitor - PO 20 mg HS URIEL Administration Colchicine 0.6 mg 05/01/17 22:00 05/01/17 22:04 Colcrys - PO 0.6 mg BID URIEL Administration Eucalyptus/Menthol/Phenol/Sorbitol 1 each 04/25/17 14:57 Cepastat Lozenge - MM Q4H PRN SORE THROAT Furosemide 40 mg 04/26/17 10:00 05/01/17 10:53 Lasix - PO 40 mg DAILY URIEL Administration Gabapentin 100 mg 04/30/17 14:00 05/02/17 06:04 Neurontin - PO 100 mg TID URIEL Administration Guaifenesin 10 ml 04/25/17 14:57 Robitussin Dm - PO Q6H PRN COUGH Hydroxyzine Pamoate 50 mg 04/25/17 14:57 Vistaril - PO Q4H PRN AGITATION Lisinopril 30 mg 04/26/17 10:00 05/01/17 10:53 Prinivil PO 30 mg DAILY URIEL Administration Loperamide HCl 4 mg 04/25/17 14:57 Imodium - PO Q6H PRN DIARRHEA Magnesium Citrate 300 ml 04/25/17 14:57 Citroma - PO Q48H PRN CONSTIPATION Magnesium Hydroxide 30 ml 04/25/17 14:57 Milk Of Magnesia - PO DAILY PRN CONSTIPATION Naproxen 500 mg 04/30/17 11:30 05/01/17 22:04 Naprosyn - PO 500 mg BID URIEL Administration Pantoprazole Sodium 40 mg 04/30/17 11:30 05/01/17 10:52 Protonix - PO 40 mg DAILY UREIL Administration Multivit/Folic Acid/Iron 1 tab 04/26/17 10:00 05/01/17 10:52 Vitamins ([facility]) - PO 1 tab DAILY URIEL Administration Pseudoephedrine/Triprolidine 1 combo 04/25/17 14:57 Actifed - PO TID PRN NASAL CONGESTION Thiamine HCl 100 mg 04/25/17 22:00 05/01/17 22:03 Vitamin B1 - PO 100 mg HS URIEL Administration Current Side Effect: No Lab tests ordered: No Lab tests reviewed: Yes Provider note:: Patient is requested to be discharge today, day 9 in rehabilitation unit, he met his short term goals, patient was encouraged to continue maintain abstinence, utilize all supports to prevent relapses and to follow up with his medical appointment. Patient is stable for discharge today. Total face to face time:: 25 Mental Status Exam - Mental Status Exam Alert and Oriented to: Time, Place, Person Cognitive Function: Grossly Intact Patient Appearance: Well Groomed Mood: Hopeful Affect: Appropriate, Mood Congruent Patient Behavior: Appropriate, Cooperative Speech Pattern: Clear, Appropriate Voice Loudness: Normal Thought Process: Intact, Goal Oriented Thought Disorder: Not Present Hallucinations: Denies Suicidal Ideation: Denies Homicidal Ideation: Denies Insight/Judgement: Fair Sleep: Fair Appetite: Fair Muscle strength/Tone: Normal Gait/Station: Normal Psychiatric Treatment Plan - Problem List (3) Cocaine dependence Qualifiers: Substance use status: uncomplicated Qualified Code(s): F14.20 - Cocaine dependence, uncomplicated
[2017-05-02] MEDS: amLODIPine BESYLATE 10 MG TABLET (FP) PO SCH (10:30)
[2017-05-02 10:49] VITALS: BP 151/77; PULSE 68
== END 2017-05-02 11:00 | disposition home or self-care (01) | DRG 772 ==
LOC: YASAS 14:43 → Y5N 14:44
PROVIDERS: ADMIT Psychiatry & Neurology Psychiatry; ATTEND Psychiatry & Neurology Psychiatry
PROC: HZ42ZZZ Group Counseling for Substance Abuse Treatment, Cognitive-Behavioral (ICD-10-PCS; principal; 2017-04-25)
DX: F10.20 Alcohol dependence, uncomplicated (principal); F14.20 Cocaine dependence, uncomplicated; F31.9 Bipolar disorder, unspecified